=== PATIENT | male | born 1930 | race Caucasian/White ===

== ENCOUNTER 2020-01-20 09:14 | Outpatient (CLI) | payer MEDICARE ==
[2020-01-20 14:45] LABS: BASOPHILS # (AUTO) 0.1 10^3/uL (0.0-0.1); BASOPHILS % (AUTO) 0.9 %; EOSINOPHILS # (AUTO) 0.2 10^3/uL (0.0-0.7); EOSINOPHILS % (AUTO) 3.5 %; HGB - HEMOGLOBIN 14.7 g/dL (14.0-18.0); LYMPHOCYTES # (AUTO) 0.7 10^3/uL (1.5-3.5); LYMPHOCYTES % (AUTO) 11.4 %; MEAN CORPUSCULAR HGB CONC 32.7 g/dL (32.0-36.0); MEAN CORPUSCULAR VOLUME 97.8 fL (80.0-94.0); MEAN PLATELET VOLUME 9.7 fL (7.4-11.4); MONOCYTES # (AUTO) 0.3 10^3/uL (0.0-1.0); MONOCYTES % (AUTO) 4.7 %; NEUTROPHILS # (AUTO) 4.6 10^3/uL (1.5-6.6); NEUTROPHILS % (AUTO) 79.3 %; PLT - PLATELET COUNT 389 10^3/uL (130-450); RED CELL DISTRIBUTION WIDTH 13.6 % (12.0-15.0); WHITE BLOOD COUNT 5.8 x10^3/uL (4.8-10.8)
[2020-01-20 15:06] LABS: ALBUMIN 4.6 g/dL (3.2-5.5); ALBUMIN/GLOBULIN RATIO 1.9 (1.0-2.2); ALKALINE PHOSPHATASE 61 IU/L (42-121); ALT ALANINE AMINOTRANSFERASE 14 IU/L (10-60); AST ASPARTATE AMINOTRANSFERASE 19 IU/L (10-42); BILIRUBIN,TOTAL 1.1 mg/dL (0.2-1.0); BUN - BLOOD UREA NITROGEN 17 mg/dL (6-20); CARBON DIOXIDE - CO2 29 mmol/L (21-32); CHLORIDE 107 mmol/L (101-111); CHOL/HDL RATIO 5.1 (<5.0); CHOLESTEROL 153 mg/dL; CREATININE 0.7 mg/dL (0.6-1.2); GLUCOSE 89 mg/dL (70-100); HDL CHOLESTEROL 30 mg/dL; LDL CHOLESTEROL,CALCULATED 104 mg/dL; LDL/HDL RATIO 3.5 (<3.6); SODIUM 141 mmol/L (135-145); VLDL CHOLESTEROL 19 mg/dL
[2020-01-20 16:05] LABS: FREE T4 (FREE THYROXINE) 1.57 ng/dL (0.58-1.64)
== END 2020-01-20 09:15 | disposition home or self-care (01) ==
LOC: LAB.S 09:14
PROVIDERS: ATTEND Physician Assistant
DX: E78.5 Hyperlipidemia, unspecified (principal); I10 Essential (primary) hypertension; Z79.899 Other long term (current) drug therapy
CPT/HCPCS: 36415; 80053; 80061; 83721; 84439; 84443; 85025

== ENCOUNTER 2021-03-17 08:14 | Outpatient (CLI) | payer MEDICARE ==
[2021-03-17 08:35] LABS: BASOPHILS # (AUTO) 0.1 10^3/uL (0.0-0.1); EOSINOPHILS # (AUTO) 0.3 10^3/uL (0.0-0.7); EOSINOPHILS % (AUTO) 3.7 %; HCT - HEMATOCRIT 47.6 % (42.0-52.0); HGB - HEMOGLOBIN 15.7 g/dL (14.0-18.0); LYMPHOCYTES # (AUTO) 0.9 10^3/uL (1.5-3.5); MEAN CORPUSCULAR VOLUME 96.9 fL (80.0-94.0); MEAN PLATELET VOLUME 9.2 fL (7.4-11.4); MONOCYTES # (AUTO) 0.3 10^3/uL (0.0-1.0); MONOCYTES % (AUTO) 3.9 %; NEUTROPHILS # (AUTO) 5.3 10^3/uL (1.5-6.6); PLT - PLATELET COUNT 423 10^3/uL (130-450); RED BLOOD COUNT 4.91 10^6/uL (4.70-6.10); RED CELL DISTRIBUTION WIDTH 13.6 % (12.0-15.0); WHITE BLOOD COUNT 6.8 x10^3/uL (4.8-10.8)
[2021-03-17 08:53] LABS: ALBUMIN 4.4 g/dL (3.2-5.5); ALBUMIN/GLOBULIN RATIO 1.5 (1.0-2.2); ALKALINE PHOSPHATASE 76 IU/L (42-121); ALT ALANINE AMINOTRANSFERASE 17 IU/L (10-60); AST ASPARTATE AMINOTRANSFERASE 19 IU/L (10-42); BUN - BLOOD UREA NITROGEN 12 mg/dL (6-20); CALCIUM 9.3 mg/dL (8.5-10.3); CARBON DIOXIDE - CO2 29 mmol/L (21-32); CHLORIDE 102 mmol/L (101-111); CHOL/HDL RATIO 4.3 (<5.0); CHOLESTEROL 138 mg/dL; CREATININE 0.8 mg/dL (0.6-1.2); GFR - MDRD 91 (>89); GLUCOSE 94 mg/dL (70-100); HDL CHOLESTEROL 32 mg/dL; LDL CHOLESTEROL,CALCULATED 86 mg/dL; LDL/HDL RATIO 2.7 (<3.6); POTASSIUM 4.6 mmol/L (3.5-5.0); SODIUM 142 mmol/L (135-145); TOTAL PROTEIN 7.4 g/dL (6.7-8.2); TRIGLYCERIDES 102 mg/dL; VLDL CHOLESTEROL 20 mg/dL
[2021-03-17 09:04] LABS: THYROID STIMULATING HORMONE 7.21 uIU/mL (0.34-5.60)
[2021-03-17 09:38] LABS: FREE T4 (FREE THYROXINE) 0.86 ng/dL (0.58-1.64)
== END 2021-03-17 08:15 | disposition home or self-care (01) ==
LOC: LAB 08:14
PROVIDERS: ATTEND Physician Assistant
DX: E03.9 Hypothyroidism, unspecified (principal); I10 Essential (primary) hypertension; E78.5 Hyperlipidemia, unspecified
CPT/HCPCS: 36415; 80053; 80061; 83721; 84439; 84443; 85025

== ENCOUNTER 2021-05-17 11:07 | Outpatient (CLI) | payer MEDICARE | END 2021-05-17 11:08 | disposition critical access hospital (66) | LOC: EMS 11:07 | DX: Z04.3 Encounter for examination and observation following other accident (principal) | CPT/HCPCS: A0425; A0429 ==

== ENCOUNTER 2021-05-17 11:36 | Emergency (ER) | payer MEDICARE ==
--- NOTE | 2021-05-17 11:53 | ED Physician Documentation ---
History of Present Illness - Stated complaint Stated Complaint: UNWITNESSED FALL - Chief complaint Chief Complaint: Trauma Hd/Nk - Additonal information Additional information: 89-year-old male who resides at [facility] is brought to the emergency department after being found down after an unwitnessed fall. He does have a superficial but rather lengthy abrasion across his forehead. Unknown downtime. By the time the EMS had arrived patient was at his baseline mentation though he complained of leg weakness. Patient is on Plavix but no other anticoagulation. He does present as a modified trauma. Unknown last normal. He however presents with no focal deficits. 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 Also previously known to require a pacemaker. He has had unwitnessed falls in the past resulted in a fracture of his hip. At this time patient is pleasantly confused to year but is aware that he is in the emergency department and clearly recognizes his daughter. He denies chest leg back abdominal or hip pain. Reports that his legs feel weak. Review of Systems Unable to obtain: Confused Constitutional: denies: Fever, Chills Eyes: reports: Reviewed and negative Ears: reports: Reviewed and negative Nose: reports: Reviewed and negative Throat: reports: Reviewed and negative Cardiac: denies: Chest pain / pressure, Palpitations Respiratory: denies: Dyspnea, Cough GI: denies: Abdominal Pain, Nausea : reports: Reviewed and negative Skin: reports: Abrasion (s) (forehead) Musculoskeletal: denies: Neck pain, Back pain, Extremity pain, Joint pain Neurologic: reports: Generalized weakness, Head injury. denies: Numbness, Seizure, Confused, Headache PD PAST MEDICAL HISTORY - Past Medical History Cardiovascular: Hypertension - Present Medications Home Medications: Ambulatory Orders Medication Instructions Recorded Confirmed Clopidogrel Bisulfate [Plavix] 75 mg PO DAILY 01/03/15 01/03/15 Finasteride [Proscar] 5 mg PO DAILY 01/03/15 01/03/15 Levothyroxine [Synthroid] 125 mcg PO DAILY 01/03/15 01/03/15 Saccharomyces Boulardii [Florastor] 500 mg PO BIDWM #20 capsule 01/03/15 Simvastatin 40 mg PO DAILY 01/03/15 01/03/15 Tamsulosin [Flomax] 0.4 mg PO DAILY 01/03/15 01/03/15 levoFLOXacin [Levaquin] 500 mg PO QD #20 tablet 01/03/15 lisinopriL [Lisinopril] 5 mg PO DAILY 01/03/15 01/03/15 raNITIdine HCl [Zantac] 150 mg PO DAILY 01/03/15 01/03/15 - Allergies Allergies/Adverse Reactions: Allergies Allergy/AdvReac Type Severity Reaction Status Date / Time No Known Drug Allergies Allergy Verified 01/03/15 07:02 - Social History Does the pt smoke?: No Smoking Status: Never smoker Does the pt drink ETOH?: No Does the pt have substance abuse?: No PD ED PE EXPANDED - General General: Alert, No acute distress - HEENT HEENT: PERRL, Pharynx normal. No: Atraumatic (5 cm abrasion across the forehead) - Neck Neck: Supple w/out meningeal sx. No: Adenopathy, Bony TTP, Limited ROM - Cardiac Cardiac: Regular Rate, Radial strong equal, Pedal strong equal, Cap refill < 2 sec. No: Murmur Present - Respiratory Respiratory: Clear to ausultation rodrigue. No: Distress, Labored - Abdomen Abdomen: Normal Bowel sounds. No: Tender to palpation - Back Back: No: Vertebral tenderness (no Vertebral tenderness elicited with palpation along the cervical thoracic or lumbar spine. No ecchymosis.) - Derm Derm: Normal color, Warm and dry, Abrasion (s) (forhead) - Extremities Extremities: Normal. No: Deformity, Tenderness - Neuro Neuro: Confused, CNII-XII intact, Other (motor strength 5/5 BUE/ 4?% bilateral lower extremeties). No: Aphasia - GCS Eye Opening: Spontaneous Motor: Obeys Commands Verbal: Confused Total: 14 Results - Vitals Vitals: Vital Signs - 24 hr 05/17/21 05/17/21 05/17/21 11:44 12:34 13:49 Temperature 36.9 C Heart Rate 81 80 90 Respiratory 20 16 16 Rate Blood Pressure 117/66 126/73 135/71 H O2 Saturation 98 97 99 05/17/21 14:46 Temperature Heart Rate 89 Respiratory 16 Rate Blood Pressure 125/70 O2 Saturation 99 Oxygen O2 Source Nasal cannula - EKG (time done) 1217 Rate: Rate (enter#) (81) Rhythm: NSR [place]: Other (IVCD) Intervals: Normal [place], Prolonged QT, Wide QRS Ischemia: Q waves (V3-6) Compare to prior EKG: Old EKG unavailable Computer interpretation: Agree with computer - Labs Labs: Laboratory Tests 05/17/21 05/17/21 05/17/21 11:52 11:52 11:52 WBC 11.8 H RBC 4.57 L Hgb 14.5 Hct 43.8 MCV 95.8 H MCH 31.7 H MCHC 33.1 RDW 13.7 Plt Count 410 MPV 9.6 Neut # (Auto) 10.7 H Lymph # (Auto) 0.5 L [place] # (Auto) 0.5 Eos # (Auto) 0.0 Baso # (Auto) 0.0 Absolute Nucleated RBC 0.00 Nucleated RBC % 0.0 PT 14.1 H INR 1.3 H Sodium 140 Potassium 4.0 Chloride 104 Carbon Dioxide 25 Anion Gap 11.0 BUN 17 Creatinine 0.7 Estimated GFR (MDRD) 106 Glucose 91 Calcium 8.9 Total Bilirubin 1.1 H AST 45 H ALT 18 Alkaline Phosphatase 61 Troponin I High Sens Total Protein 7.0 Albumin 4.2 Globulin 2.8 Albumin/Globulin Ratio 1.5 Lipase 304 H Urine Color Urine Clarity Urine pH Ur Specific [place] Urine Protein Urine Glucose (UA) Urine Ketones Urine Occult Blood Urine Nitrite Urine Bilirubin Urine Urobilinogen Ur Leukocyte Esterase Urine RBC Urine WBC Ur Squamous Epith Cells Urine Bacteria Ur Microscopic Review Urine Culture Comments 05/17/21 05/17/21 05/17/21 11:52 13:34 13:50 WBC RBC Hgb Hct MCV MCH MCHC RDW Plt Count MPV Neut # (Auto) Lymph # (Auto) [place] # (Auto) Eos # (Auto) Baso # (Auto) Absolute Nucleated RBC Nucleated RBC % PT INR Sodium Potassium Chloride Carbon Dioxide Anion Gap BUN Creatinine Estimated GFR (MDRD) Glucose Calcium Total Bilirubin AST ALT Alkaline Phosphatase Troponin I High Sens 34.6 H* 38.5 H* Total Protein Albumin Globulin Albumin/Globulin Ratio Lipase Urine Color DARK YELLOW Urine Clarity CLEAR Urine pH 6.5 Ur Specific [place] 1.010 Urine Protein NEGATIVE Urine Glucose (UA) NEGATIVE Urine Ketones 15 H Urine Occult Blood TRACE-INTA Urine Nitrite NEGATIVE Urine Bilirubin NEGATIVE Urine Urobilinogen 1 (NORMAL) Ur Leukocyte Esterase TRACE H Urine RBC 0-5 Urine WBC 0-3 Ur Squamous Epith Cells FEW Squamous Urine Bacteria Few Ur Microscopic Review INDICATED Urine Culture Comments INDICATED - Rads (name of study) CT abd/pelvis Radiology: Final report received (No acute findings. No evidence of fracture or free fluid. Chronic findings include atherosclerotic vascular calcification, fusiform AAA, large fecal bolus in rectum.) CT neck Radiology: Final report received (No acute fracture or genetic malalignment. Straightening of the normal cervical lordosis may be related to positioning or muscle spasm. 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 maxillary mucosal sinus disease) CXR Radiology: Final report received (No acute cardiopulmonary findings.) PD MEDICAL DECISION MAKING - ED course Complexity details: reviewed results, re-evaluated patient, considered differential, d/w patient, d/w family ED course: 89-year-old male presents the emergency department for evaluation of abrasion on his forehead. He lives at [facility] and had an unwitnessed fall or collapse. It is not clear. Patient is on Plavix at baseline and has a pacer in place. He does present as mildly confused which is his baseline given a mild history of dementia. He had no focal deficits. His vital signs were also unremarkable without tachyarrhythmia tachycardia, hypotension or fever. Screening labs showed no significant leukocytosis or anemia. Initially we did note a very mild troponin elevation of 34. And on repeat it was 38. This is a very static finding. His EKG is grossly abnormal given the history of a pacer but he is denying any chest pain. This is not consistent with acute coronary syndrome. We did note a mild lipase elevation of 300 but no abdominal pain was elicited on exam. However given the advanced age we did also do a CT of the abdomen and pelvis that showed a known abdominal thoracic aneurysm unchanged in size. He is noted to be mildly constipated but no findings of pancreatitis or biliary obstruction. CT of the head and neck were also without acute findings. Here in the emergency department he did receive 1 L of IV fluids and was seen to be ambulating well in the hallway with his walker at baseline. Laboratory and imaging findings have been discussed at length with the patient and his daughter at the bedside. They both feel comfortable with discharge back to [facility]. Emergent return precautions were discussed. Departure - Departure Disposition: 01 Home, Self Care Clinical Impression: Abrasion, Elevated troponin I level, Elevated lipase AAA (abdominal aortic aneurysm) Qualifiers: Presence of rupture: without rupture Qualified Code(s): I71.4 - Abdominal aortic aneurysm, without rupture Fall Qualifiers: Encounter type: initial encounter Qualified Code(s): W19.XXXA - Unspecified fall, initial encounter Instructions: ED Abrasion Comments: Per was seen in the emergency department today after an unwitnessed fall. He does have a rather large abrasion across his forehead. The CT scan of his head does not show any acute finding such as a bleed or mass. The CT of his neck does not show any worrisome findings. We also did a CT of his abdomen because he has a mildly elevated lipase. However there was no abdominal pain. The CT of the abdomen shows that he has a known abdominal aortic aneurysm that is unchanged in size. However there were no findings to suggest concerns of inflammation around the gallbladder, liver or pancreas. We did note that his troponin is just mildly elevated, But on repeat did not change. It is common for older people to have some mildly elevated troponin. It does not look like he is having a heart attack today. Here in the emergency department his labs have otherwise been very stable and he has no signs of infection in the urine. He has been ambulating well with a walker. He is stable for discharge back to [facility]. He should always use a walker when ambulating. Any further falls he should seek care at the emergency department. NIHSS - Time Time: 11:50 - Level of Consciousness Level of consciousness: (0) Alert, Keenly responsive LOC Questions: (0) Answers both Q's correct LOC Commands: (0) Performs both correctly - Gaze Best Gaze: (0) Normal - Visual Visual: (0) No loss - Facial Palsy Facial Palsy: (0) Normal, symmetrical movement - Motor Arms (both separate) Motor Arm (right): (0) No drift Motor Arm (left): (0) No drift - Motor Legs (both separate) Motor Leg (right): (1) Drift Motor Leg (left): (1) Drift - Limb Ataxia Limb Ataxia: (0) Absent - Sensory Sensory: (0) Normal - Best Language Best Language: (0) No aphasia - Dysarthria Dysarthria: (0) Normal - Extinction and Inattention (formally neg Extinction and inattention: (0) No abnormality - Total Score/Results Total Score/Result: 2
[2021-05-17] MEDS ORDERED: SODIUM CHLORIDE 0.9% 1,000 ML IV STA (11:55)
[2021-05-17 12:01] LABS: BASOPHILS % (AUTO) 0.3 %; EOSINOPHILS % (AUTO) 0.3 %; HCT - HEMATOCRIT 43.8 % (42.0-52.0); HGB - HEMOGLOBIN 14.5 g/dL (14.0-18.0); LYMPHOCYTES # (AUTO) 0.5 10^3/uL (1.5-3.5); LYMPHOCYTES % (AUTO) 4.4 %; MEAN CORPUSCULAR HEMOGLOBIN 31.7 pg (27.0-31.0); MEAN CORPUSCULAR HGB CONC 33.1 g/dL (32.0-36.0); MEAN CORPUSCULAR VOLUME 95.8 fL (80.0-94.0); MEAN PLATELET VOLUME 9.6 fL (7.4-11.4); MONOCYTES # (AUTO) 0.5 10^3/uL (0.0-1.0); MONOCYTES % (AUTO) 3.9 %; NEUTROPHILS # (AUTO) 10.7 10^3/uL (1.5-6.6); NEUTROPHILS % (AUTO) 90.7 %; PLT - PLATELET COUNT 410 10^3/uL (130-450); RED BLOOD COUNT 4.57 10^6/uL (4.70-6.10); RED CELL DISTRIBUTION WIDTH 13.7 % (12.0-15.0); WHITE BLOOD COUNT 11.8 x10^3/uL (4.8-10.8)
--- NOTE | 2021-05-17 12:16 | CT Report ---
PROCEDURE: CT brain without contrast INDICATIONS: 89-year-old male with ground-level fall, trauma, pain TECHNIQUE: Noncontrast 4.5 mm thick angled axial sections acquired from the foramen magnum to the vertex. For r adiation dose reduction, the following was used: automated exposure control, adjustment of mA and/or kV according to patient size. COMPARISON: CT brain 03/24/2010 report. Images not available. FINDINGS: Image quality: Excellent. CSF spaces: Basal cisterns are patent. No extra-axial fluid collections. Ventricles are normal in size and shape. Atrophy and white matter chronic ischemic change noted. There is an old lacunar infa rcts noted in the left basal ganglia. Brain: No midline shift. No intracranial masses or hemorrhage. Nap[place]-white matter interface is norm al. Skull and face: Calvarium and visualized facial bones are intact, without suspicious lesions. Sinuses: Bilateral maxillary sinus mucosal thickening and retention cysts noted. IMPRESSION: 1. Atrophy and chronic ischemic change without acute hemorrhage or mass effect 2. 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 Maxillary mucosal sinus disease Reviewed by: Franklin Mederos MD on 05/17/2021 11:15 AM [facility] Approved by: Franklin Mederos MD on 05/17/2021 11:15 AM [facility] Station ID: [id number]
[2021-05-17 12:17] LABS: ALBUMIN 4.2 g/dL (3.2-5.5); ALBUMIN/GLOBULIN RATIO 1.5 (1.0-2.2); BILIRUBIN,TOTAL 1.1 mg/dL (0.2-1.0); CALCIUM 8.9 mg/dL (8.5-10.3); CREATININE 0.7 mg/dL (0.6-1.2)
--- NOTE | 2021-05-17 12:30 | CT Report ---
PROCEDURE: CT cervical spine without contrast INDICATIONS: 89-year-old male with ground-level fall, neck pain TECHNIQUE: Noncontrast 3 mm thick sections acquired from the skull base to the T4 level. Sagittal a nd coronal reformats were then constructed. For radiation dose reduction, the following was used: a utomated exposure control, adjustment of mA and/or kV according to patient size. COMPARISON: None. FINDINGS: Image quality: Excellent. Bones: No fractures or dislocations. Visualized superior ribs are intact. There is straightening o f the normal cervical lordosis present. Disc space narrowing and posterior disc spur complex is noted in the mid cervical spine. Moderate central stenosis present at C3-4, C4-5 and C5-6. Soft tissues: Prevertebral soft tissues are normal in thickness. No paravertebral hematomas. No ap ical pneumothoraces. IMPRESSION: 1. No fracture or genetic malalignment 2. Straightening of the normal cervical lordosis may related to positioning or muscle spasm 3. Multilevel degenerative disc disease and arthropathy results in moderate cervical spine central st enosis in the mid cervical spine Reviewed by: Franklin Mederos MD on 05/17/2021 11:29 AM [place] Approved by: Franklin Mederos MD on 05/17/2021 11:29 AM [facility] Station ID: [id number]
--- NOTE | 2021-05-17 12:32 | XRAY Report ---
PROCEDURE: Chest 1 View X-Ray INDICATIONS: chest pain TECHNIQUE: One view of the chest was acquired. COMPARISON: None FINDINGS: Surgical changes and devices: Dual-chamber left-sided pacemaker noted Lungs and pleura: No pleural effusions or pneumothorax. Lungs are clear. Mediastinum: Mediastinal contours appear normal. Heart size is normal. Atherosclerotic vascular christa cification noted in the aortic arch. Bones and chest wall: No suspicious bony lesions. Overlying soft tissues appear unremarkable. IMPRESSION: No acute cardiopulmonary findings Reviewed by: Franklin Mederos MD on 05/17/2021 11:30 AM [facility] Approved by: Franklin Mederos MD on 05/17/2021 11:30 AM [facility] Station ID: [id number]
[2021-05-17 12:34] LABS: INR 1.3 (0.8-1.2); PT - PROTHROMBIN TIME 14.1 secs (9.9-12.6)
[2021-05-17] MEDS ORDERED: IOVERSOL 320 100 ML VIAL IVP ONE ×2 (12:48→13:58)
--- NOTE | 2021-05-17 13:30 | CT Report ---
PROCEDURE: CT abdomen and pelvis with contrast INDICATIONS: 89-year-old male status post ground level fall, pain CONTRAST: IV CONTRAST: Optiray 320 ml: 100 PO CONTRAST: *NO PO CONTRAST TECHNIQUE: After the administration of intravenous contrast, 5 mm thick sections acquired from the diaphragms to the symphysis. 5 mm thick coronal and sagittal reformats were acquired. For radiation dose reducti on, the following was used: automated exposure control, adjustment of mA and/or kV according to kip ent size. COMPARISON: None. FINDINGS: Image quality: Excellent. ABDOMEN: Lung bases: Lung bases are clear. Heart size is normal. Dense coronary artery vascular calcificati on present. Solid organs: Liver and spleen are normal in size and enhancement. Gallbladder unremarkable. Bilia ry system is non dilated. Pancreas enhances normally. No adrenal nodules. Kidneys demonstrate norm al size and enhancement, without hydronephrosis. 2.5 cm right renal cortical cyst. Peritoneum and bowel: Bowel loops demonstrate normal wall thickness and caliber. No free fluid or a ir. Large fecal bolus in the rectum. No bowel obstruction. Nodes and vessels: No retroperitoneal or mesenteric adenopathy by size criteria. Atherosclerotic aor ta noted with infrarenal 3.6 cm abdominal aortic aneurysm Miscellaneous: No ventral hernias. PELVIS: Genitourinary: Bladder wall thickness is normal. Miscellaneous: No inguinal hernias or adenopathy. Bones: No suspicious bony lesions. No vertebral body compression fractures. Right hip orthopedic p ins present. Vertebral body height and alignment maintained. No evidence of fracture. IMPRESSION: 1. No acute findings. No evidence of fracture or free fluid. 2. Chronic findings include atherosclerotic vascular calcification, fusiform AAA, large fecal bolus i n the rectum. Reviewed by: Franklin Mederos MD on 05/17/2021 12:29 PM [place] Approved by: Franklin Mederos MD on 05/17/2021 12:29 PM [facility] Station ID: [id number]
[2021-05-17 13:41] LABS: BILIRUBIN,URINE NEGATIVE (NEGATIVE); GLUCOSE, URINE (UA) NEGATIVE (NEGATIVE); KETONES,URINE (UA) 15 mg/dL (NEGATIVE); LEUKOCYTE ESTERASE, URINE TRACE (NEGATIVE); NITRITE,URINE NEGATIVE (NEGATIVE); OCCULT BLOOD,URINE TRACE-INTA (NEGATIVE); PH,URINE 6.5 PH (5.0-7.5); PROTEIN,URINE NEGATIVE (NEGATIVE); UROBILINOGEN,URINE 1 (NORMAL) E.U./dL (NORMAL)
[2021-05-17] MEDS ORDERED: KETOROLAC 30 MG/ML VIAL IVP STA (13:42)
[2021-05-17 13:49] LABS: BACTERIA,URINE Few /HPF (None Seen); CLARITY,URINE CLEAR (CLEAR); RBC,URINE 0-5 /HPF (0-5); SQUAMOUS EPITHELIAL CELL,UR FEW Squamous (<= Few); WBC,URINE 0-3 /HPF (0-3)
[2021-05-17 14:47] VITALS: BP 125/70
== END 2021-05-17 15:39 | disposition home or self-care (01) ==
LOC: ED 11:36
DX: S00.81XA Abrasion of other part of head, initial encounter (principal); W19.XXXA Unspecified fall, initial encounter; Y92.099 Unspecified place in other non-institutional residence as the place of occurrence of the external cause; F03.90 Unspecified dementia, unspecified severity, without behavioral disturbance, psychotic disturbance, mood disturbance, and anxiety; R77.8 Other specified abnormalities of plasma proteins; R74.8 Abnormal levels of other serum enzymes; R29.702 NIHSS score 2; I71.4 Abdominal aortic aneurysm, without rupture; I69.920 Aphasia following unspecified cerebrovascular disease; I10 Essential (primary) hypertension; Z95.0 Presence of cardiac pacemaker; Z79.02 Long term (current) use of antithrombotics/antiplatelets; Z91.81 History of falling
CPT/HCPCS: 36415; 70450; 71045; 72125; 74177; 80053; 81001; 83690; 84484; 85025; 85610; 87077; 87086; 87181; 93005; 96361; 96374; 99283; 99284; Q9967; 81003